=== PATIENT | female | born 1965 | race Caucasian/White ===

== ENCOUNTER 2021-09-05 14:57 | Emergency (ER) | payer MEDICARE, MEDICAID, SELFPAY ==
[2021-09-05] VITALS (8 sets, daily range): BP systolic 128–163; BP diastolic 70–103; PULSE 113–118; RESP 16–30; O2SAT 96–100
--- NOTE | ~2021-09-05 | XR_ITS ---
EXAMINATION: XR chest 1V portable INDICATION: Shortness of breath TECHNIQUE: Portable AP chest at 1554 hours COMPARISON: None available FINDINGS: There are airspace opacities of the right lung base. A small amount of fluid is identified which may reflect a pleural effusion versus fluid level in the lung parenchyma. There is no pneumotho rax. The cardiomediastinal silhouette is normal. IMPRESSION: 1. Right basilar airspace opacity with possible fluid level versus small effusion. Finding could refl ect pneumonia with abscess or possible cavitary mass versus pleural effusion. Further evaluation with CT of the chest is recommended. Reviewed, dictated and finalized at location F. ER ASSISTANT IMPRESSION: 1. Right basilar airspace opacity with possible fluid level versus small effusi on. Finding could reflect pneumonia with abscess or possible cavitary mass vers us pleural effusion. Further evaluation with CT of the chest is recommended.
--- NOTE | ~2021-09-05 | CT_ITS ---
EXAMINATION: CTA chest PE protocol DATE: 09/05/2021 16:55 INDICATION: Shortness of breath and elevated d-dimer TECHNIQUE: Computed tomography angiography (CTA) of the chest was performed with 100 mL Omnipaque-350 intravenous contrast timed to evaluate the pulmonary arteries. Coronal maximum intensity projection 3D-reconstructions were created by the technologist. The dose-length product (DLP) was 360.21 mGy-cm. Automated exposure control and iterative reconstruction technique were employed. COMPARISON: None. FINDINGS: The pulmonary arteries are well-opacified. No pulmonary embolism is identified. Respiratory motion artifact limits the examination. The lung apices are excluded from the examination. There is an approximately 7.1 x 5.3 cm cavitary mass of the right middle lobe with an internal air-fluid level . There is an adjacent 15.8 x 8.1 x 10.2 cm loculated right hydropneumothorax. The heart size is norm al. There are no pathologically enlarged thoracic lymph nodes. There is mild emphysema. IMPRESSION: 1. Cavitary mass of the right middle lobe with internal air-fluid level, likely cavitary pneumonia al though malignancy could have a similar appearance. 2. Adjacent loculated right hydropneumothorax. 3. No pulmonary embolus identified, sensitivity limited by motion artifact. Reviewed, dictated and finalized at location F. CTOR OF ENROLLMENT IMPRESSION: 1. Cavitary mass of the right middle lobe with internal air-fluid level, likely cavitary pneumonia although malignancy could have a similar appearance. 2. Adjacent loculated right hydropneumothorax. 3. No pulmonary embolus identified, sensitivity limited by motion artifact.
--- NOTE | 2021-09-05 15:07 | ECG_ITS ---
Measurements Intervals [place] Rate: 122 P: 53 ME: 120 QRS: 26 QRSD: 86 T: 52 QT: 271 QTc: 387 Interpretive Statements SINUS TACHYCARDIA ATRIAL AND VENTRICULAR PREMATURE COMPLEXES LEFT VENTRICULAR HYPERTROPHY BASELINE ARTIFACT- I, II, III, AVR, AVL, AVF, V1-V6 ABNORMAL ECG Electronically Signed On 09-06-2021 15:03:10 BUREAU DIRECTOR by Ulises Scott D.O.
--- NOTE | 2021-09-05 15:24 | ED.SOB ---
HPI - SOB/Dyspnea General Chief Complaint: Shortness of Breath/Dyspnea Stated Complaint: Shortness of breath Time Seen by Provider: 09/05/21 15:01 Source: patient and RN notes reviewed Limitations: no limitations History of Present Illness HPI Narrative: 56-year-old female presenting to the emergency department for evaluation of worsening shortness of breath. Patient states over the last 3 weeks she has had a persistent shortness of breath. Patient does have a significant history of smoking but states that she quit July. Patient is not on oxygen at home. Patient does take albuterol and Symbicort but states these have not been helping her symptoms. Patient presented to the emergency department tripoding and and mild distress. Patient does report shortness of breath denies any chest pain. Patient denies any nausea vomiting or diarrhea. Patient denies any fevers. Patient is vaccinated against COVID. Related Data Home Medications Medication Instructions Recorded Confirmed albuterol sulfate INHALATION 09/05/21 amlodipine 09/05/21 budesonide-formoterol [Symbicort] INHALATION 09/05/21 ergocalciferol (vitamin D2) 09/05/21 naproxen 09/05/21 prednisone 09/05/21 risperidone mg 09/05/21 tramadol mg 09/05/21 trazodone 09/05/21 Allergies Allergy/AdvReac Type Severity Reaction Status Date / Time No Known Allergies Allergy Verified 09/05/21 15:29 Review of Systems Review of Systems: CONSTITUTIONAL: Denies fever, chills, or sweats. EYES: Denies visual changes, redness, or discharge. ENT: Denies rhinorrhea, congestion, sore throat, or otalgia. CARDIOVASCULAR: Denies chest pain, palpitations, or edema. RESPIRATORY: Worsening shortness of breath GASTROINTESTINAL: Denies abdominal pain, nausea, vomiting, or diarrhea. GENITOURINARY: Denies dysuria or hematuria. SKIN: Denies rash or itching. MUSCULOSKELETAL: Denies back pain, joint pain, or myalgia. Exam Narrative: APPEARANCE: Mild distress due to increased work of breathing. HEAD: normocephalic, atraumatic. EYES: PERRLA/EOMI, conjunctivae clear. NOSE: Normal no drainage RESPIRATORY: Increased work of breathing. Lower lobe wheeze. Tripoding CARDIOVASCULAR: Regular rate and rhythm without murmurs rubs or gallops. ABDOMINAL: Soft, nontender, nondistended, normal bowel sounds MUSCULOSKELETAL: Moves all extremities. Strength/ROM intact, No edema, No calf tenderness. NEURO: Alert. Cranial nerves II through XII intact. Neurologically intact SKIN: Warm, dry. Normal Color PSYCHIATRIC: Normal affect/mood. Course Course Emergency Course: CT scan does show a cavitary lesion concerning for pneumonia versus malignancy on the right middle and lower lobe. Patient was started on Vanco and Zosyn with blood cultures pending. Pulmonology was consulted, Dr Lundberg. He did state that the patient would be suitable for treatment here but after taking a look at the CT scan he did feel the patient need to be transferred to a higher level of care with the availability of cardiothoracic surgery. U was consulted. Consultations Consultation #1: Dr Strickland, [facility] hospitalist, Dr Frederick, [facility] pulmonology, and Dr Hackett, [facility] CT surgery were consulted. Sputum cultures were ordered. CT requested drainage of the possible empyema tomorrow if patient has not transferred. I discussed the case with Dr. Beckwith and an order for ultrasound thoracentesis was placed. He states they will decide between IR and surgery on best how to to approach the drainage. Consultation #2: Bed availability at [facility] was unknown. Due to the emergent nature of diagnosis it was decided to seek other placement. Patient was ultimately accepted at [facility]. Case was discussed with the hospitalist and patient was accepted by Dr. Herrera. Patient was updated on the plan for transfer. All questions and concerns were addressed. Patient states that she feels significantly improved and patient is resting comfortably in the room with n
[2021-09-05 15:30] LABS: Hematocrit 32.1 % (37.0-47.0); Mean Corpuscular HGB Conc 31.2 g/dl (32-36); Mean Corpuscular Hemoglobin 29.1 pg (26-34); Mean Corpuscular Volume 93.3 fl (80-100); Mean Platelet Volume 8.6 fl (7.4-10.4); Platelet Count Result 503 k/mm3 (150-375); Red Blood Count 3.44 M/mm3 (4.2-5.4); Red Cell Distribution Width 16.4 % (11.5-14.5); White Blood Count 30.6 K/mm3 (4.5-10.0)
[2021-09-05] MEDS: ALBUTEROL SULFATE NEB 2.5 MG/0.5 ML INH 5 MG INHALATION (15:30)
[2021-09-05] MEDS: SODIUM CHLORIDE 0.9% IV 1,000 ML 999 ML IV CONT (15:30)
[2021-09-05] MEDS: methylPREDNISolone SOD SUCC 125 MG VIAL IV PUSH (15:32)
[2021-09-05 15:36] LABS: Base Excess ABG 1.2 mEq/l (+/-2.0); Fractional Inspired Oxygen 28 %; Oxygen Content ABG 13.5 %vol (16.0-22.0); Oxygen Saturation ABG 97.5 % (95.0-100.0); Oxyhemoglobin 95.8 % THb (90.0-100.0); PCO2 ABG 36.7 mmHg (35.0-45.0); PO2 ABG 93.3 mmHg (80.0-100.0); PO2 FiO2 Ratio Arterial Blood 3.33 %; Total Hemoglobin 9.9 g/dL (12.0-18.0); pH ABG 7.452 (7.350-7.450)
[2021-09-05 15:37] LABS: Device NASAL CANNULA; Modified Allen's Test Pass; Site Drawn RIGHT RADIAL
[2021-09-05 15:40] LABS: Alanine Aminotransferase 21 U/L (4-35); Albumin Level 3.8 g/dL (3.5-5.1); Alkaline Phosphatase 104 U/L (38-126); Anion Gap 8 mmol/L (8-16); Aspartate Amino Transferase 33 U/L (14-36); Bilirubin,Total 0.3 mg/dL (0.2-1.3); Blood Urea Nitrogen 23 mg/dL (7-17); Calcium 8.9 mg/dL (8.4-10.2); Carbon Dioxide 25 mmol/L (22-30); Chloride 99 mmol/L (98-107); Estimated CRCL calculation 50 ml/min; Estimated Glomerular Filt Rate > 60; Glucose 135 mg/dL (65-110); Potassium 4.6 mmol/L (3.4-5.0); Sodium 132 mmol/L (137-145)
[2021-09-05 15:43] LABS: D Dimer 0.66 ug/mL (<0.48)
[2021-09-05 15:49] LABS: NT Pro B Type Natriuretic Pept 425 pg/mL (5-100)
[2021-09-05 16:09] LABS: Band Neutrophils Percent 24 % (0-6); Lymphocytes Absolute Manual 1.22 K/mm3 (1.1-4.5); Metamyelocytes Percent 1 %; Monocytes Absolute Manual 2.14 K/mm3 (0.1-0.90); Monocytes Percent Manual 7 % (3-9); Neutrophils Absolute Manual 26.92 K/mm3 (1.7-7.2); Neutrophils Percent Manual 64 % (46-73); Total Cells Counted 100
[2021-09-05 16:10] LABS: Platelet Estimate Increased (Adequate)
[2021-09-05 16:17] LABS: Anisocytosis 1+ (NORMAL); Hypochromasia 1+ (NORMAL)
--- NOTE | 2021-09-05 16:37 | PC.NURSE ---
pt to CT at this time.
[2021-09-05 16:52] LABS: SARS-CoV-2 RNA PCR Negative
[2021-09-05] MEDS: traZODone HCL 50 MG TABLET PO (22:16)
== END 2021-09-05 23:19 | disposition short-term general hospital (02) ==
PROVIDERS: Emergency Provider Emergency Medicine
DX: J98.4 Other disorders of lung (principal); Z20.822 Contact with and (suspected) exposure to COVID-19; Z87.891 Personal history of nicotine dependence; J94.8 Other specified pleural conditions
CPT/HCPCS: 36415; 36600; 71045; 71275; 80053; 82805; 83880; 85025; 85380; 87040; 93005; 94640; 96361; 96365; 96367; 96375; 99285; A9270; C9803; J2543; J2930; J3370; J7030; Q9967; U0003; U0005

== ENCOUNTER 2023-05-13 16:43 | Emergency (ER) | payer OTHER, SELFPAY ==
--- NOTE | ~2023-05-13 | XR_ITS ---
EXAMINATION: XR chest 2V DATE: 05/13/2023 17:25 INDICATION: Asthmatic with difficulty breathing TECHNIQUE: frontal and lateral views of the chest were obtained. COMPARISON: Chest radiograph and CT dated 09/05/2021 FINDINGS: Hyperexpansion of lungs with flattening of the diaphragm. There is blunting at the bilateral costophr enic angles and posterior sulci which could represent associated pleural parenchymal scarring or very small bilateral pleural effusions. Mild linear discoid atelectasis/scarring at the right midlung zon e. No other airspace opacities, pulmonary edema or pneumothorax. Cardiomediastinal silhouette is norm al. Chronic T6 and T7 compression fractures. IMPRESSION: 1. Hyperexpansion lungs with suggestion of asthma exacerbation. 2. Blunting at the bilateral posterior sulci and costophrenic angles which could be due to either ple ural parenchymal scarring or very small bilateral pleural effusions. Reviewed, dictated and finalized at location A. IMPRESSION: 1. Hyperexpansion lungs with suggestion of asthma exacerbation. 2. Blunting at the bilateral posterior sulci and costophrenic angles which coul d be due to either pleural parenchymal scarring or very small bilateral pleural effusions.
[2023-05-13 16:59] VITALS: BP 149/90; PULSE 111; RESP 16; TEMP 37.3; O2SAT 98
--- NOTE | 2023-05-13 17:43 | ED.URI ---
HPI - URI/Sore Throat General Chief Complaint: Upper Respiratory Infection Stated Complaint: hard time breathing Time Seen by Provider: 05/13/23 17:05 Source: patient Mode of arrival: ambulatory Limitations: no limitations History of Present Illness HPI Narrative: Vance is a 58-year-old female patient presenting to the clinic today with complaints of difficulty breathing over the past few days. She denies any fever or chills. Is concerned about pneumonia-states she was admitted with pneumonia in the past. Reports she is short of breath but is able to speak in full sentences. History of asthma. MD elicited complaint: cough and other (Shortness of breath) Related Data Home Medications Medication Instructions Recorded Confirmed albuterol sulfate 90 mcg/actuation inhalation 09/05/21 aerosol inhaler amlodipine 10 mg tablet 09/05/21 budesonide-formoterol HFA 160 inhalation 09/05/21 mcg-4.5 mcg/actuation aerosol inhaler (Symbicort) ergocalciferol (vitamin D2) 1,250 09/05/21 mcg (50,000 unit) capsule trazodone 50 mg tablet 09/05/21 budesonide 160 mcg-glycopyr 9 inh inhalation 05/13/23 mcg-formot 4.8 mcg/actuation HFA inhaler (Breztri Aerosphere) citalopram 40 mg tablet mg 05/13/23 hydrocodone 5 mg-acetaminophen 325 tablet 05/13/23 mg tablet megestrol 40 mg tablet mg 05/13/23 montelukast 10 mg tablet mg 05/13/23 Allergies Allergy/AdvReac Type Severity Reaction Status Date / Time No Known Allergies Allergy Verified 05/13/23 17:13 Review of Systems Review of Systems: Pertinent positives per HPI. Patient denies any fever, chills, rash, headache, visual changes, dizziness, chest pain, palpitations, nausea, vomiting, diarrhea, constipation, abdominal pain, or any urinary issues. PMFSH Comments At the time of my signature, I reviewed and agree with the nursing past medical, surgical, social, and family history. There is no relevant family history pertinent to the patient complaint. Exam Narrative: General: Well-developed, well nourished, in no apparent distress Head: Normocephalic, atraumatic Eyes: Pupils equally round and reactive to light bilaterally, EOM intact, sclera and conjunctive clear, no discharge, lids normal Ears: TMs intact and clear, ear canals clear, no drainage, grossly hearing normal. Nose: Nares patent, clear nasal discharge, no inflammation, no sinus tenderness. Mouth: Oral pharynx without lesions or masses, good dentition, MMM. Neck: Supple, trachea midline, no enlargement of anterior or posterior cervical nodes, no thyroid masses or goiter palpable. Cardio: Regular rate and rhythm, s1 and s2 normal, no murmur appreciated. Resp: Expiratory wheezing with diminished breath sounds, no rhonchi, rales,or rubs Course Course Emergency Course: Portions of this record may have been created with voice recognition software. Level of Care: Express Care Visit Vital Signs Vital signs: Vital Signs Temperature 37.3 C 05/13/23 16:59 Pulse Rate 111 H 05/13/23 16:59 Respiratory Rate 16 05/13/23 16:59 Blood Pressure 149/90 H 05/13/23 16:59 Pulse Oximetry 98 05/13/23 16:59 Oxygen Delivery Room Air 05/13/23 16:59 Temperature 37.3 C 05/13/23 16:59 Pulse Rate 111 H 05/13/23 16:59 Respiratory Rate 18 05/13/23 18:15 Blood Pressure 149/90 H 05/13/23 16:59 Pulse Oximetry 98 05/13/23 16:59 Oxygen Delivery Room Air 05/13/23 16:59 Vital signs reviewed MDM - URI/Sore Throat MDM Narrative Medical decision making narrative: At the time of visit patient is resting comfortably on the exam table. Chest x-ray shows no sign of pneumonia however does show probable asthma exacerbation with bilateral small pleural effusions. DuoNeb was given in the clinic today and this improved patient's breathing and lung sounds, prescription for doxycycline and prednisone was given to cover for a COPD exacerbation. Supportive measures were discussed
[2023-05-13] MEDS: IPRATROPIUM BR 0.02% INH SOLN 0.5 MG/2.5 ML VIAL INHALATION (17:58)
[2023-05-13] MEDS: ALBUTEROL SULFATE NEB 2.5 MG/3 ML INH INHALATION (17:59)
--- NOTE | 2023-05-13 18:01 | PC.NURSE ---
aware service delivery analyst has dc papers printed and dc after breathing tx.
[2023-05-13 18:15] VITALS: RESP 18
== END 2023-05-13 18:15 | disposition home or self-care (01) ==
PROVIDERS: Emergency Provider Nurse Practitioner Family
DX: J45.901 Unspecified asthma with (acute) exacerbation (principal); I10 Essential (primary) hypertension; J44.9 Chronic obstructive pulmonary disease, unspecified
CPT/HCPCS: 71046; 94640; 99213; G0463

== ENCOUNTER 2023-07-30 16:31 | Inpatient (IN) | payer OTHER, SELFPAY ==
[2023-07-30] VITALS (17 sets, daily range): BP systolic 102–151; BP diastolic 54–112; PULSE 101–125; RESP 22–33; TEMP 36.7–37.2; O2SAT 96–100; BMI 16.2
--- NOTE | 2023-07-30 | ECG_ITS ---
Measurements Intervals [place] Rate: 116 P: 78 TN: 129 QRS: 67 QRSD: 90 T: 77 QT: 327 QTc: 456 Interpretive Statements SINUS TACHYCARDIA VENTRICULAR PREMATURE COMPLEX VOLTAGE CRITERIA FOR LVH BASELINE ARTIFACT- I, II, III, AVR, AVL, AVF, V1-V2, V4-V6 ABNORMAL ECG COMPARED TO ECG 09/05/2021 15:07:51 NO SIGNIFICANT CHANGES Electronically Signed On 07-31-2023 6:42:35 BPM SOLUTION ARCHITECT by Ulises Scott D.O.
--- NOTE | ~2023-07-30 | XR_ITS ---
EXAMINATION: XR chest 1V portable Exam Date/Time: 07/30/2023 17:00 MANAGER OF FINANCIAL PLANNING HISTORY: dyspnea Comparison: 05/13/2023. RESULT: Lines, tubes, and devices: None. Lungs and pleura: Severe emphysematous change. Right midlung scar. No focal consolidation, pleural e ffusion, or pneumothorax. Cardiomediastinal silhouette: Stable. Other: No acute osseous or upper abdominal finding. IMPRESSION: No acute cardiopulmonary process. Reviewed, dictated and finalized at location K. GER OF FINANCIAL PLANNING
[2023-07-30] MEDS: methylPREDNISolone SOD SUCC 125 MG VIAL IV PUSH (16:37)
[2023-07-30 16:49] LABS: Basophils Absolute Auto 0.1 K/mm3 (0.0-0.1); Basophils Percent Auto 0.5 % (0.2-1.2); Eosinophils Absolute Auto 0.3 K/mm3 (0-0.3); Eosinophils Percent Auto 2.8 % (0-4.4); Hematocrit 42.4 % (37.0-47.0); Immature Granulocyte Absolute 0.04 K/mm3 (0.00-0.031); Immature Granulocyte Percent A 0.4 % (0-0.5); Lymphocytes Absolute Auto 2.33 K/mm3 (0.9-3.2); Lymphocytes Percent Auto 22.3 % (18.3-44.2); Mean Corpuscular Hemoglobin 30.8 pg (26-34); Mean Corpuscular Volume 93.2 fl (80-100); Mean Platelet Volume 9.5 fl (7.4-10.4); Monocytes Absolute Auto 1.1 K/mm3 (0.1-0.6); Monocytes Percent Auto 10.8 % (2.6-8.5); Neutrophils Absolute Auto 6.6 K/mm3 (1.3-6.7); Neutrophils Percent Auto 63.2 % (45.5-73.1); Platelet Count Result 346 k/mm3 (150-375); Red Blood Count 4.55 M/mm3 (4.2-5.4); Red Cell Distribution Width 13.2 % (11.5-14.5); White Blood Count 10.5 K/mm3 (4.5-10.0)
[2023-07-30] MEDS: ALBUTEROL SULFATE NEB 2.5 MG/3 ML INH 15 MG INHALATION (16:49)
[2023-07-30] MEDS: IPRATROPIUM BR 0.02% INH SOLN 0.5 MG/2.5 ML VIAL 1 MG INHALATION (16:49)
[2023-07-30 17:07] LABS: Alanine Aminotransferase 41 U/L (6-35); Albumin Level 4.5 g/dL (3.5-5.1); Alkaline Phosphatase 63 U/L (38-126); Anion Gap 12 mmol/L (8-16); Aspartate Amino Transferase 44 U/L (14-36); Bilirubin,Total 0.6 mg/dL (0.2-1.3); Blood Urea Nitrogen 7 mg/dL (7-17); Calcium 9.4 mg/dL (8.4-10.2); Carbon Dioxide 28 mmol/L (22-30); Chloride 94 mmol/L (98-107); Estimated CRCL calculation 46 ml/min; Estimated Glomerular Filt Rate > 60; Glucose 118 mg/dL (65-110); Magnesium 1.8 mg/dL (1.6-2.3); Potassium 4.2 mmol/L (3.4-5.0); Sodium 134 mmol/L (137-145)
[2023-07-30 17:15] LABS: NT Pro B Type Natriuretic Pept 2110 pg/mL (19.9-100)
[2023-07-30] MEDS: LORazepam INJ (*CRX) 2 MG/ML VIAL 0.5 MG IV PUSH ×2 (17:16→21:50)
[2023-07-30 17:24] LABS: Alveolar/Arterial O2 Gradient 68.4 mmHg; Base Excess ABG -0.6 mEq/l (+/-2.0); Carboxyhemoglobin 0.8 % THb (0-2.0); Fractional Inspired Oxygen 45 %; HCO3 ABG 24.6 mEq/l (22.0-26.0); Methemoglobin ABG 0.1 %THb (0-1.5); Oxygen Content ABG 20.4 %vol (16.0-22.0); Oxygen Saturation ABG 99.4 % (95.0-100.0); Oxyhemoglobin 98.1 % THb (90.0-100.0); PCO2 ABG 42.3 mmHg (35.0-45.0); PO2 ABG 204.3 mmHg (80.0-100.0); PO2 FiO2 Ratio Arterial Blood 4.54 %; Total Hemoglobin 14.5 g/dL (12.0-18.0); pH ABG 7.382 (7.350-7.450)
[2023-07-30 17:25] LABS: Device BIPAP; Modified Allen's Test Pass; Site Drawn RIGHT BRACHIAL
[2023-07-30 17:26] LABS: Influenza A QL RT-PCR Negative (Negative); Influenza B QL RT-PCR Negative (Negative); RSV RNA, RT-PCR Positive (Negative); SARS-CoV-2 RNA PCR Negative (Negative)
[2023-07-30 17:26] LABS: Expiratory Pressure 7 cmH2O; Inspiratory Pressure 12 cmH2O
--- NOTE | 2023-07-30 18:03 | ED.SOB ---
HPI - SOB/Dyspnea General Chief Complaint: Shortness of Breath/Dyspnea Stated Complaint: SOB Time Seen by Provider: 07/30/23 16:33 History of Present Illness HPI Narrative: Patient with history of COPD presents here due to difficulty breathing, she has had increased shortness of breath for last few days, has been trying to use her home albuterol, has been also having productive sputum. When EMS arrived was in severe distress, they gave 1 neb, pt refused steroids. Related Data Home Medications Medication Instructions Recorded Confirmed albuterol sulfate 90 mcg/actuation inhalation 09/05/21 aerosol inhaler amlodipine 10 mg tablet 09/05/21 budesonide-formoterol HFA 160 inhalation 09/05/21 mcg-4.5 mcg/actuation aerosol inhaler (Symbicort) ergocalciferol (vitamin D2) 1,250 09/05/21 mcg (50,000 unit) capsule trazodone 50 mg tablet 09/05/21 budesonide 160 mcg-glycopyr 9 inh inhalation 05/13/23 mcg-formot 4.8 mcg/actuation HFA inhaler (Breztri Aerosphere) citalopram 40 mg tablet mg 05/13/23 hydrocodone 5 mg-acetaminophen 325 tablet 05/13/23 mg tablet megestrol 40 mg tablet mg 05/13/23 montelukast 10 mg tablet mg 05/13/23 Allergies Allergy/AdvReac Type Severity Reaction Status Date / Time No Known Allergies Allergy Verified 05/13/23 17:13 Review of Systems Review of Systems: CONST: No fever. HEENT: No sore throat C/V: No chest pain RESP: cough and difficulty breathing GI: No abdominal pain : No dysuria. M/S: No joint pain. SKIN: No rash. NEURO: [No headache or focal numbness or weakness] PSYCH: [No depression] Exam Narrative: EXAMINATION OF ORGAN SYSTEMS/BODY AREAS: Constitutional: Vital signs per nursing GENERAL: Severe respiratory distress HEAD: Normal with no signs of head trauma. EYES: EOMI, conjunctiva normal ENT: Hearing grossly intact LUNGS: extremely tachypneic, labored respirations, no to minimal air movement bilaterally, one word sentences HEART: tachycardic ABD: [Soft], [nontender to palpation] EXT: Normal range of motion SKIN: [No rashes or lesions.] NEURO: [Alert and oriented x 3. No gross focal sensory or strength deficits.] PSYCH: Normal affect Course Vital Signs Vital signs: Vital Signs Temperature 98.0 F 07/30/23 16:28 Pulse Rate 117 H 07/30/23 16:28 Respiratory Rate 33 H 07/30/23 16:28 Blood Pressure 151/112 H 07/30/23 16:28 Pulse Oximetry 100 07/30/23 16:28 Oxygen Delivery Room Air 07/30/23 16:28 Temperature 98.0 F 07/30/23 16:28 Pulse Rate 125 H 07/30/23 17:48 Respiratory Rate 29 H 07/30/23 17:48 Blood Pressure 109/92 H 07/30/23 17:48 Pulse Oximetry 100 07/30/23 17:48 Oxygen Delivery BiPAP 07/30/23 16:50 Oxygen Flow Rate 2 07/30/23 16:35 MDM - SOB/Dyspnea MDM Narrative Medical decision making narrative: ED COURSE AND MEDICAL DECISION MAKIN with acute dyspnea and cough likely due to acute COPD exacerbation based on history and exam, also considered pneumonia, pneumothorax; considered PE however no DVT symptoms and I do feel more likely COPD. Patient immediately placed on monitors, BIPAP, nebulizer treatments are started and steroids given. Patient became quite anxious with the mask on, so very small dose of ativan ordered. Patient tolerated this well. Patient monitored in the ED for a couple of hours and on reevaluation is feeling significantly better. Now with improved exam with some audible wheezing now but still diminished. I did feel she would benefit from admission for continued treatment and she's agreeable with this. Azithromycin started for COPD exac. RSV+. CXR on my independent interpretation c/w emphysema with hyperinflated lungs, no obvious PTX or focal consolidation. EKG - 12-Lead Interpreted by me. [Sinus rhythm]. Rate [116]. [Normal] axis. ND-interval [normal]. QRS duration [normal]. QTc [normal]. [No ST segment elevation or depression]. No obvious signs o
--- NOTE | 2023-07-30 18:08 | PM.IMHP ---
H&P: HPI History of Present Illness Date/Time: 07/30/23 18:08 Chief Complaint: SOB Narrative: 58 y/o F presents here with SOB with PMH of COPD, former smoker, HTN, chronic back pain, insomnia, and anxiety. Patient presented here via EMS from home with shortness of breath and fever. Patient states her symptoms started on Monday, 07/28. Associated congestion, productive cough, generalized weakness, and body aches. No chills. Arrived to ED in distress despite DuoNeb treatment while in route. Per ED provider, patient had diminished lung sounds throughout and tight, was tripoding, unable to speak full sentences, and had pursed lip breathing/retractions. Patient has been utilizing her home albuterol without resolution of symptoms for the past few days. Last COPD exacerbation was on 05/13/2023, seen here and given nebulizers. Was discharged with doxycycline and prednisone. Has history of smoking - . Vital signs at arrival: Afebrile, HR 117, RR 33, 100% on room air, BP 151/112. ED workup revealed mild leukocytosis with WBC of 10.5, VBG unremarkable excluding elevated pO2 of 204.3, sodium 134, creatinine 0.8, mild elevation in LFTs, proBNP 2110, and patient is RSV+. CXR did not demonstrate any acute cardiopulmonary processes. EKG showed sinus tachycardia, atrial and ventricular premature complexes, left ventricular hypertrophy, abnormal EKG. Review of Systems Review of Systems: All systems reviewed & are unremarkable except as noted in HPI and below PMFSH Past Medical History Medical History Anxiety Chronic back pain COPD (chronic obstructive pulmonary disease) Former smoker HTN (hypertension) Insomnia Surgical History Surgical History History of cataract surgery Family History Family History Sibling Hypertension Social History Social History Smoking packs per day: 0.5 Smoking cigarettes per day: 10.0 Years smoked: 35 Smoking pack-years: 17.50 Smoking status: Former smoker Tobacco type: cigarettes Smoking end date: 07/23/23 Alcohol intake: never Substance use: current Substance use type: marijuana Last use: 07/28/23 Do You Feel Safe in your Home?: Yes Lack of Transportation: No Lack of Food: Never True Current Housing: I Have Housing Concerned About Future Housing: No Difficulty Paying Gas/Electric Bills: No Difficulty Paying for Meds: No Currently Unemployed: No Education: High School Diploma/GED Difficulty w/ Childcare or Family Care: No Spiritual care concerns: No Meds Home Medications and Allergies Home Medications Medication Instructions Recorded Confirmed Type albuterol sulfate 90 mcg/actuation 2 puff inhalation BID 09/05/21 07/30/23 History aerosol inhaler amlodipine 10 mg tablet 5 mg PO QAM 09/05/21 07/30/23 History budesonide-formoterol HFA 160 2 puff inhalation BID 09/05/21 07/30/23 History mcg-4.5 mcg/actuation aerosol inhaler (Symbicort) trazodone 50 mg tablet 50 mg PO HS 09/05/21 07/30/23 History hydrocodone 5 mg-acetaminophen 325 1 tablet PO QID 05/13/23 07/30/23 History mg tablet Allergies Allergy/AdvReac Type Severity Reaction Status Date / Time No Known Allergies Allergy Verified 05/13/23 17:13 Vital Signs Vital Signs - 24 hr 07/30/23 16:28 07/30/23 16:35 07/30/23 16:35 Temperature 98.0 F Pulse Rate 117 H 115 H Respiratory Rate 33 H Blood Pressure 151/112 H Pulse Oximetry 100 100 Oxygen Delivery Room Air Nasal Cannula Oxygen Flow Rate 2 07/30/23 16:35 07/30/23 16:50 07/30/23 16:51 Temperature Pulse Rate 108 H 107 H Respiratory Rate 29 H 23 H Blood Pressure Pulse Oximetry 100 99 Oxygen Delivery Nasal Cannula BiPAP Oxygen Flow Rate 2 07/30/23 17:48 [place]a
[2023-07-30] MEDS: AZITHROMYCIN 500 MG/NS 250 ML 500 MG/250 ML BAG 250 MG IVPB (18:10)
[2023-07-30] MEDS: guaiFENesin 12 HR 600 MG TABCR PO (19:20)
[2023-07-30] MEDS: ENOXAPARIN 40 MG/0.4 ML SYRINGE SUB-Q (19:20)
[2023-07-30] MEDS: SODIUM CHLORIDE 0.9% IV 1,000 ML 100 ML IV CONT (19:27)
[2023-07-30] MEDS: LEVALBUTEROL NEB 1.25 MG/3 ML INHALATION ×2 (19:42→23:03)
--- NOTE | 2023-07-30 21:15 | ADMGEN ---
This patient, Cathy Vallejo, was admitted to IMU Room 209-01. Patient/family oriented to hospital policies and general routines including ID bracelet, bed and alarms, visiting hours, pain management, procedures, bathroom and other care routines, personal items, smoking policy, room service/diet, and visiting hours. Information on how to activate the Rapid Response Team has been discussed. Patient/Family are encouraged to report perceived risks to care and to ask questions if they do not understand what they are told or what they should do.
[2023-07-30] MEDS: IPRATROPIUM BR 0.02% INH SOLN 0.5 MG/2.5 ML VIAL INHALATION (23:03)
--- NOTE | 2023-07-30 23:03 | PC.NURSE ---
Talked to and educated patient with charge nurse, María OLIVERA, and Randi Lindsey APRN present. Patient stated she does not want to be resusitated with compressions, medications, or intubation.
[2023-07-31] VITALS (28 sets, daily range): BP systolic 131–173; BP diastolic 91–109; PULSE 99–123; RESP 22–32; TEMP 36.6–37; O2SAT 93–100; BMI 16.2
[2023-07-31] MEDS: methylPREDNISolone SOD SUCC 125 MG VIAL 60 MG IV PUSH ×4 (00:05→17:00)
[2023-07-31] MEDS: ACETAMINOPHEN 325 MG TABLET 650 MG PO (02:56)
[2023-07-31] MEDS: LEVALBUTEROL NEB 1.25 MG/3 ML INHALATION ×6 (04:51→23:31)
[2023-07-31] MEDS: IPRATROPIUM BR 0.02% INH SOLN 0.5 MG/2.5 ML VIAL INHALATION ×6 (04:51→23:31)
[2023-07-31] MEDS: amLODIPine BESYLATE 5 MG TABLET PO (09:06)
[2023-07-31] MEDS: BENZONATATE 100 MG CAPSULE PO ×2 (09:07→17:00)
[2023-07-31] MEDS: HYDROcodone/acetaminophen (*CRX) 5-325 MG TABLET 1 TAB PO ×4 (09:07→20:12)
[2023-07-31] MEDS: guaiFENesin 12 HR 600 MG TABCR PO ×2 (09:09→20:12)
[2023-07-31 10:52] LABS: NT Pro B Type Natriuretic Pept 2970 pg/mL (19.9-100)
[2023-07-31 11:11] LABS: Fractional Inspired Oxygen 28 %; HCO3 VBG 20.4 mEq/l (24.0-30.0); PO2 VBG 80.9 mmHg (35.0-45.0)
[2023-07-31 11:12] LABS: pH VBG 7.458 (7.300-7.400)
[2023-07-31 11:13] LABS: Device NON-INVASIVE VENT; Non-Invasive Expiratory Pressure 7 CMH2O; Non-Invasive Inspiratory Pressure 14 CMH2O; Non-Invasive Vent Rate 16 /MIN; PCO2 VBG 29.5 mmHg (42.0-48.0)
--- NOTE | 2023-07-31 16:11 | PM.IMPN ---
Progress Note: A&P Assessment and Plan (1) COPD with acute exacerbation: Code(s): J44.1 - Chronic obstructive pulmonary disease with (acute) exacerbation Status: Acute Assessment and Plan: -currently requiring BiPAP, continue -CXR: No acute cardiopulmonary process. Per my review of imaging, possible blebs bilaterally at bases. -continue nebs: ipratropium/levalbuterol Q4 p.r.n., post albuterol administration patient became increasingly tachycardic with heart rate sustaining in the 120-130s -continue steroids: initial dose of 125 mg methylprednisolone IVP, continue as 60 mg IVP Q6H x 3d. -1st dose of azithromycin 500 mg IVPB given in ED, continue Q24H -reassessment at 2100: minimal air movement. will need to continue BiPAP and nebs. 07/31/23: Will wean oxygen (2) RSV bronchitis: Code(s): J20.5 - Acute bronchitis due to respiratory syncytial virus Status: Acute Assessment and Plan: -tested positive for RSV on 07/30/2023 -symptom onset on: -continue supportive measures Tylenol p.r.n. Tessalon Perles p.r.n. IV fluids - 100 mL/hr of NS x2L Mucinex Plan Diet: NPO until off BiPAP GI Prophylaxis: Not indicated DVT Prophylaxis: SCDs, Lovenox Lines: pIV Code Status: DNR Time Spent With Patient Time with patient: 25 - 35 minutes Subjective Date/time seen: 07/31/23 16:11 Interval history: Seen and examined; on BiPAP; not in painful distress Review of Systems Review of Systems: All systems reviewed & are unremarkable except as noted in HPI and below Constitutional: Constitutional: Reports no additional constitutional complaints Eyes: Eyes: Reports no additional eye complaints ENT: Reports system reviewed and no additional complaints, except as documented Cardiovascular: Cardiovascular: Reports no additional cardiovascular complaints Respiratory: Respiratory: Reports dyspnea Gastrointestinal: Gastrointestinal: Reports no additional gastrointestinal complaints Musculoskeletal: Musculoskeletal: Reports no additional musculoskeletal complaints Integumentary/Breasts: Skin/Breast: Reports dry skin Neurologic: Reports confusion Psychiatric: Psychiatric: Reports no additional psychiatric complaints Exam Const: General: comfortable and in distress Other: ill appearing, frail, , female. HENMT: Face/Nose/Sinus: Normal nares present Mouth: Yes dry mucous membranes Other: dry secondary to BIPAP Eyes: General: appearance normal, both eyes and all related structures Sclera: sclerae normal Pupils: Equal, round and reactive pupils present EOM: EOMs intact bilaterally Other: 3-4 mm bilaterally. Resp: Other: +tachypnea, diaphragmatic breathing. L diminished throughout with minimal air movement. R side has faint expiratory wheeze with moderate airmovement. no crackles, however limited due to min-mod air movement throughout. BIPAP in place. Cardio: Rate: tachycardic Rhythm: regular rhythm Other: S1-S2 present without murmur, rub, ectopy GI: Other: non-tender, non-firm, and non-distended Skin: General skin exam: normal color and no rashes or lesions noted Wounds: no wounds Neuro: Cranial nerves: Yes Equal, round and reactive pupils present Speech: normal speech Motor exam (neuro): 5/5 motor strength present throughout Sensory Exam: normal sensation Other: A/Ox4. Extrem: General: normal to inspection Psych: Mental Status: mental status grossly normal Affect: normal affect Other: Fair insight judgment, pleasant. Objective Data Vital Signs Vital Signs: Vital Signs - 24 hr 07/30/23 16:28 07/30/23 16:35 07/30/23 16:35 Temperature 98.0 F Pulse Rate 117 H 115 H Respiratory Rate 33 H Blood Pressure 151/112 H Pulse Oximetry 100 100 Oxygen Delivery Room Air Nasal Cannula Oxygen Flow Rate 2 Fraction of Inspired Oxygen 07/30/23 16:35 07/30/23 16:50 07/30/23 16:51 [place]
[2023-07-31] MEDS: SODIUM CHLORIDE 0.9% IV 1,000 ML 50 ML IV CONT (16:18)
[2023-07-31] MEDS: AZITHROMYCIN 500 MG/NS 250 ML 500 MG/250 ML BAG 250 MG IVPB (17:00)
[2023-07-31] MEDS: FLUTICASONE/SALMETEROL 115-21 MCG INHALER 1 PUFF 2 PUFF INHALATION (19:27)
[2023-07-31] MEDS: traZODone HCL 50 MG TABLET PO (20:12)
[2023-08-01] VITALS (35 sets, daily range): BP systolic 140–190; BP diastolic 90–106; PULSE 97–124; RESP 20–30; TEMP 36–37.1; O2SAT 96–100
[2023-08-01] MEDS: methylPREDNISolone SOD SUCC 125 MG VIAL 60 MG IV PUSH ×3 (00:46→12:02)
[2023-08-01] MEDS: LEVALBUTEROL NEB 1.25 MG/3 ML INHALATION ×6 (03:44→23:33)
[2023-08-01] MEDS: IPRATROPIUM BR 0.02% INH SOLN 0.5 MG/2.5 ML VIAL INHALATION ×6 (03:45→23:33)
[2023-08-01 04:55] LABS: Basophils Percent Auto 0.1 % (0.2-1.2); Hematocrit 32.7 % (37.0-47.0); Hemoglobin 10.7 g/dL (12.0-15.0); Immature Granulocyte Absolute 0.07 K/mm3 (0.00-0.031); Immature Granulocyte Percent A 0.5 % (0-0.5); Lymphocytes Absolute Auto 0.72 K/mm3 (0.9-3.2); Lymphocytes Percent Auto 5.1 % (18.3-44.2); Mean Corpuscular HGB Conc 32.7 g/dl (32-36); Mean Corpuscular Hemoglobin 31.1 pg (26-34); Mean Corpuscular Volume 95.1 fl (80-100); Mean Platelet Volume 9.6 fl (7.4-10.4); Monocytes Absolute Auto 0.6 K/mm3 (0.1-0.6); Monocytes Percent Auto 4.1 % (2.6-8.5); Neutrophils Absolute Auto 12.7 K/mm3 (1.3-6.7); Neutrophils Percent Auto 90.2 % (45.5-73.1); Platelet Count Result 286 k/mm3 (150-375); Red Blood Count 3.44 M/mm3 (4.2-5.4); Red Cell Distribution Width 13.4 % (11.5-14.5); White Blood Count 14.1 K/mm3 (4.5-10.0)
[2023-08-01 05:26] LABS: Alanine Aminotransferase 31 U/L (6-35); Albumin Level 3.8 g/dL (3.5-5.1); Alkaline Phosphatase 41 U/L (38-126); Anion Gap 9 mmol/L (8-16); Aspartate Amino Transferase 31 U/L (14-36); Bilirubin,Total 0.4 mg/dL (0.2-1.3); Blood Urea Nitrogen 28 mg/dL (7-17); Calcium 8.9 mg/dL (8.4-10.2); Carbon Dioxide 23 mmol/L (22-30); Chloride 102 mmol/L (98-107); Estimated CRCL calculation 35 ml/min; Estimated Glomerular Filt Rate 57; Glucose 133 mg/dL (65-110); Potassium 4.2 mmol/L (3.4-5.0); Sodium 134 mmol/L (137-145)
[2023-08-01] MEDS: FLUTICASONE/SALMETEROL 115-21 MCG INHALER 1 PUFF 2 PUFF INHALATION ×2 (08:20→19:39)
[2023-08-01] MEDS: guaiFENesin 12 HR 600 MG TABCR PO ×2 (08:21→20:30)
[2023-08-01] MEDS: HYDROcodone/acetaminophen (*CRX) 5-325 MG TABLET 1 TAB PO ×4 (08:21→20:30)
[2023-08-01] MEDS: amLODIPine BESYLATE 5 MG TABLET PO (08:21)
[2023-08-01] MEDS: LORazepam INJ (*CRX) 2 MG/ML VIAL 0.5 MG IV PUSH ×2 (09:26→20:29)
--- NOTE | 2023-08-01 09:33 | ECG_ITS ---
Measurements Intervals [place] Rate: 109 P: 55 DE: 116 QRS: 48 QRSD: 89 T: 60 QT: 325 QTc: 439 Interpretive Statements SINUS TACHYCARDIA WITH SHORT DE INTERVAL VENTRICULAR PREMATURE COMPLEX ABNORMAL ECG COMPARED TO ECG 07/30/2023 16:33:10 NO SIGNIFICANT CHANGES Electronically Signed On 08-01-2023 10:46:25 STAFF PHYSICAL THERAPIST by Ulises Scott D.O.
--- NOTE | 2023-08-01 09:43 | PCOTNOTE ---
Attempted OT evaluation, per RN hold due to current high HR. Will follow.
[2023-08-01 09:46] LABS: Potassium 4.3 mmol/L (3.4-5.0)
--- NOTE | 2023-08-01 09:48 | PCPTNOTE ---
Attempted PT evaluation, per RN hold due to current high HR. Will follow
[2023-08-01] MEDS: METOPROLOL SUCCINATE EXT REL 25 MG TABCR PO (10:17)
[2023-08-01] MEDS: SODIUM CHLORIDE 0.9% IV 1,000 ML 50 ML IV CONT (12:02)
--- NOTE | 2023-08-01 14:58 | PM.IMPN ---
Progress Note: A&P Assessment and Plan (1) COPD with acute exacerbation: Code(s): J44.1 - Chronic obstructive pulmonary disease with (acute) exacerbation Status: Acute Assessment and Plan: -currently requiring BiPAP, continue -CXR: No acute cardiopulmonary process. Per my review of imaging, possible blebs bilaterally at bases. -continue nebs: ipratropium/levalbuterol Q4 p.r.n., post albuterol administration patient became increasingly tachycardic with heart rate sustaining in the 120-130s -continue steroids: initial dose of 125 mg methylprednisolone IVP, continue as 60 mg IVP Q6H x 3d. -1st dose of azithromycin 500 mg IVPB given in ED, continue Q24H -reassessment at 2100: minimal air movement. will need to continue BiPAP and nebs. 07/31/23: Will wean oxygen 08/01/: Steroids, oxygen, Ceftriaxone, Azithromycin, PEP, (2) RSV bronchitis: Code(s): J20.5 - Acute bronchitis due to respiratory syncytial virus Status: Acute Assessment and Plan: -tested positive for RSV on 07/30/2023 -symptom onset on: -continue supportive measures Tylenol p.r.n. Tessalon Perles p.r.n. IV fluids - 100 mL/hr of NS x2L Mucinex Plan Diet: NPO until off BiPAP GI Prophylaxis: Not indicated DVT Prophylaxis: SCDs, Lovenox Lines: pIV Code Status: DNR Time Spent With Patient Time with patient: 25 - 35 minutes Subjective Date/time seen: 08/01/23 14:58 Interval history: Seen and examined; anxious and cooperative Review of Systems Review of Systems: All systems reviewed & are unremarkable except as noted in HPI and below Constitutional: Constitutional: Reports no additional constitutional complaints Eyes: Eyes: Reports no additional eye complaints ENT: Reports system reviewed and no additional complaints, except as documented Cardiovascular: Cardiovascular: Reports no additional cardiovascular complaints and Reports dyspnea Respiratory: Respiratory: Reports dyspnea Gastrointestinal: Gastrointestinal: Reports no additional gastrointestinal complaints Musculoskeletal: Musculoskeletal: Reports no additional musculoskeletal complaints Integumentary/Breasts: Skin/Breast: Reports dry skin Neurologic: Reports confusion Psychiatric: Psychiatric: Reports no additional psychiatric complaints and Reports confusion Exam Const: General: comfortable, in distress and confusion Orientation/consciousness: confusion Other: ill appearing, frail, , female. HENMT: Face/Nose/Sinus: Normal nares present Mouth: Yes dry mucous membranes Other: dry secondary to BIPAP Eyes: General: appearance normal, both eyes and all related structures Sclera: sclerae normal Pupils: Equal, round and reactive pupils present EOM: EOMs intact bilaterally Other: 3-4 mm bilaterally. Neck: Neck: supple Resp: Auscultation: wheezes and diminished lung sounds Other: +tachypnea, diaphragmatic breathing. L diminished throughout with minimal air movement. R side has faint expiratory wheeze with moderate airmovement. no crackles, however limited due to min-mod air movement throughout. Cardio: Rate: tachycardic Rhythm: regular rhythm Other: S1-S2 present without murmur, rub, ectopy GI: Other: non-tender, non-firm, and non-distended Skin: General skin exam: normal color and no rashes or lesions noted Wounds: no wounds Neuro: Cranial nerves: Yes Equal, round and reactive pupils present Speech: normal speech Motor exam (neuro): 5/5 motor strength present throughout Sensory Exam: normal sensation Other: A/Ox4. Extrem: General: normal to inspection Psych: Mental Status: mental status grossly normal Affect: Anxious affect present Other: Fair insight judgment, pleasant. Objective Data Vital Signs Vital Signs: Vital Signs - 24 hr 07/31/23 16:00 07/31/23 16:27 07/31/23 16:45 Temperature 98.2 F Pulse Rate 117 H 99 103 H Respiratory Rate 24 H 2
[2023-08-01] MEDS: guaiFENesin/DEXTROMETHORPHAN 10 ML UDC PO ×2 (16:42→20:33)
[2023-08-01] MEDS: AZITHROMYCIN 500 MG/NS 250 ML 500 MG/250 ML BAG 250 MG IVPB (17:49)
[2023-08-01] MEDS: traZODone HCL 50 MG TABLET PO (20:30)
[2023-08-01] MEDS: methylPREDNISolone SOD SUCC 125 MG VIAL 40 MG IV PUSH (20:31)
[2023-08-02] VITALS (32 sets, daily range): BP systolic 144–196; BP diastolic 82–115; PULSE 94–114; RESP 18–28; TEMP 36.2–36.9; O2SAT 92–99
[2023-08-02] MEDS: IPRATROPIUM BR 0.02% INH SOLN 0.5 MG/2.5 ML VIAL INHALATION ×5 (03:18→20:41)
[2023-08-02] MEDS: LEVALBUTEROL NEB 1.25 MG/3 ML INHALATION ×2 (03:18→07:35)
[2023-08-02] MEDS: ACETAMINOPHEN 325 MG TABLET 650 MG PO (04:49)
[2023-08-02] MEDS: BENZONATATE 100 MG CAPSULE PO ×2 (04:50→20:31)
[2023-08-02] MEDS: guaiFENesin/DEXTROMETHORPHAN 10 ML UDC PO ×3 (04:52→17:36)
[2023-08-02] MEDS: LORazepam INJ (*CRX) 2 MG/ML VIAL 0.5 MG IV PUSH (04:53)
[2023-08-02] MEDS: SODIUM CHLORIDE 0.9% IV 1,000 ML 50 ML IV CONT (04:55)
[2023-08-02 05:11] LABS: Basophils Percent Auto 0.1 % (0.2-1.2); Immature Granulocyte Absolute 0.11 K/mm3 (0.00-0.031); Immature Granulocyte Percent A 0.9 % (0-0.5); Lymphocytes Absolute Auto 0.56 K/mm3 (0.9-3.2); Lymphocytes Percent Auto 4.6 % (18.3-44.2); Mean Corpuscular HGB Conc 33.3 g/dl (32-36); Mean Corpuscular Hemoglobin 31.3 pg (26-34); Mean Platelet Volume 9.6 fl (7.4-10.4); Monocytes Absolute Auto 0.7 K/mm3 (0.1-0.6); Monocytes Percent Auto 5.9 % (2.6-8.5); Neutrophils Absolute Auto 10.7 K/mm3 (1.3-6.7); Neutrophils Percent Auto 88.5 % (45.5-73.1); Platelet Count Result 272 k/mm3 (150-375); Red Blood Count 3.19 M/mm3 (4.2-5.4); Red Cell Distribution Width 13.3 % (11.5-14.5); White Blood Count 12.1 K/mm3 (4.5-10.0)
[2023-08-02 05:23] LABS: Alanine Aminotransferase 24 U/L (6-35); Albumin Level 3.3 g/dL (3.5-5.1); Alkaline Phosphatase 39 U/L (38-126); Anion Gap 5 mmol/L (8-16); Aspartate Amino Transferase 27 U/L (14-36); Bilirubin,Total 0.2 mg/dL (0.2-1.3); Blood Urea Nitrogen 23 mg/dL (7-17); Calcium 8.9 mg/dL (8.4-10.2); Carbon Dioxide 27 mmol/L (22-30); Chloride 103 mmol/L (98-107); Estimated CRCL calculation 46 ml/min; Estimated Glomerular Filt Rate > 60; Glucose 141 mg/dL (65-110); Potassium 4.1 mmol/L (3.4-5.0); Sodium 135 mmol/L (137-145)
[2023-08-02] MEDS: FLUTICASONE/SALMETEROL 115-21 MCG INHALER 1 PUFF 2 PUFF INHALATION ×2 (07:35→20:42)
[2023-08-02] MEDS: amLODIPine BESYLATE 5 MG TABLET PO (09:27)
[2023-08-02] MEDS: HYDROcodone/acetaminophen (*CRX) 5-325 MG TABLET 1 TAB PO ×4 (09:27→20:30)
[2023-08-02] MEDS: guaiFENesin 12 HR 600 MG TABCR PO ×2 (09:27→20:30)
[2023-08-02] MEDS: methylPREDNISolone SOD SUCC 125 MG VIAL 40 MG IV PUSH (09:27)
--- NOTE | 2023-08-02 09:30 | PCPTNOTE ---
Attempted PT evaluation, pt's BP too high at this time per RN. Will follow.
[2023-08-02] MEDS: METOPROLOL TARTRATE 12.5 MG TABLET PO ×2 (10:12→20:31)
--- NOTE | 2023-08-02 10:57 | P.CDI_ITS ---
CDI Query Clarification Request Documentation in the medical record indicates that this patient has a: BMI =17.4 Based on your medical judgement , can you further clarify in the progress notes the diagnosis associated with these findings, if known, such as: * Underweight * Cachexia * Emaciation * Malnutrition * Undernutrition * Anorexia * Other condition ( Please specify) * None of the above/Not applicable <Ruth Ryan RN - Last Filed: 08/02/23 11:03> Clarified Diagnosis Clarified Diagnosis: Cachexia;Undernutrition <Eliecer Castillo MD - Last Filed: 08/02/23 13:08>
[2023-08-02] MEDS: hydrALAZINE HCL 20 MG/ML VIAL IV PUSH (11:39)
--- NOTE | 2023-08-02 13:40 | PCOTNOTE ---
Attempted OT evaluation, pt's BP too high at this time per RN. Will follow.
--- NOTE | 2023-08-02 13:45 | PCPTNOTE ---
Attempted PT evaluation, pt's BP remains too high per RN. Will follow
--- NOTE | 2023-08-02 14:32 | PM.IMPN ---
Progress Note: A&P Assessment and Plan (1) COPD with acute exacerbation: Code(s): J44.1 - Chronic obstructive pulmonary disease with (acute) exacerbation Status: Acute Assessment and Plan: -currently requiring BiPAP, continue -CXR: No acute cardiopulmonary process. Per my review of imaging, possible blebs bilaterally at bases. -continue nebs: ipratropium/levalbuterol Q4 p.r.n., post albuterol administration patient became increasingly tachycardic with heart rate sustaining in the 120-130s -continue steroids: initial dose of 125 mg methylprednisolone IVP, continue as 60 mg IVP Q6H x 3d. -1st dose of azithromycin 500 mg IVPB given in ED, continue Q24H -reassessment at 2100: minimal air movement. will need to continue BiPAP and nebs. 07/31/23: Will wean oxygen 08/01/: Steroids, oxygen, Ceftriaxone, Azithromycin, PEP, 08/02: DuoNebs, continue Antibiotics; PEP Rx (2) RSV bronchitis: Code(s): J20.5 - Acute bronchitis due to respiratory syncytial virus Status: Acute Assessment and Plan: -tested positive for RSV on 07/30/2023 -symptom onset on: -continue supportive measures Tylenol p.r.n. Tessalon Perles p.r.n. IV fluids - 100 mL/hr of NS x2L Mucinex (3) Anxiety: Code(s): F41.9 - Anxiety disorder, unspecified Status: Acute Assessment and Plan: Stable; on Anxiolytics (4) HTN (hypertension): Code(s): I10 - Essential (primary) hypertension Status: Acute Assessment and Plan: stable; on Amlodipine, Hydralazine Plan Diet: NPO until off BiPAP GI Prophylaxis: Not indicated DVT Prophylaxis: SCDs, Lovenox Lines: pIV Code Status: DNR Time Spent With Patient Time with patient: 25 - 35 minutes Subjective Date/time seen: 08/02/23 14:32 Interval history: Seen and examined; anxious and cooperative Review of Systems Review of Systems: All systems reviewed & are unremarkable except as noted in HPI and below Constitutional: Constitutional: Reports no additional constitutional complaints Eyes: Eyes: Reports no additional eye complaints ENT: Reports system reviewed and no additional complaints, except as documented Cardiovascular: Cardiovascular: Reports no additional cardiovascular complaints and Reports dyspnea Respiratory: Respiratory: Reports dyspnea Gastrointestinal: Gastrointestinal: Reports no additional gastrointestinal complaints Musculoskeletal: Musculoskeletal: Reports no additional musculoskeletal complaints Integumentary/Breasts: Skin/Breast: Reports dry skin Neurologic: Reports confusion Psychiatric: Psychiatric: Reports no additional psychiatric complaints and Reports confusion Exam Const: General: comfortable, in distress and confusion Orientation/consciousness: confusion Other: ill appearing, frail, , female. HENMT: Face/Nose/Sinus: Normal nares present Mouth: Yes dry mucous membranes Other: dry secondary to BIPAP Eyes: General: appearance normal, both eyes and all related structures Sclera: sclerae normal Pupils: Equal, round and reactive pupils present EOM: EOMs intact bilaterally Other: 3-4 mm bilaterally. Neck: Neck: supple Resp: Auscultation: wheezes and diminished lung sounds Other: +tachypnea, diaphragmatic breathing. L diminished throughout with minimal air movement. R side has faint expiratory wheeze with moderate airmovement. no crackles, however limited due to min-mod air movement throughout. Cardio: Rate: tachycardic Rhythm: regular rhythm Other: S1-S2 present without murmur, rub, ectopy GI: Other: non-tender, non-firm, and non-distended Skin: General skin exam: normal color and no rashes or lesions noted Wounds: no wounds Neuro: General: confusion Cranial nerves: Yes Equal, round and reactive pupils present Speech: normal speech Motor exam (neuro): 5/5 motor strength present throughout Sensory Exam: normal sensation Other: A
[2023-08-02] MEDS: lisinopriL 10 MG TABLET PO (17:36)
[2023-08-02] MEDS: hydroCHLOROthiazide 25 MG TABLET PO (17:36)
[2023-08-02] MEDS: AZITHROMYCIN 500 MG/NS 250 ML 500 MG/250 ML BAG 250 MG IVPB (17:36)
[2023-08-02] MEDS: traZODone HCL 50 MG TABLET PO (20:30)
[2023-08-02] MEDS: methylPREDNISolone SOD SUCC 40 MG VIAL 20 MG IV PUSH (20:31)
[2023-08-03] VITALS (29 sets, daily range): BP systolic 139–176; BP diastolic 93–123; PULSE 84–110; RESP 18–28; TEMP 36.3–36.9; O2SAT 93–98
[2023-08-03] MEDS: IPRATROPIUM BR 0.02% INH SOLN 0.5 MG/2.5 ML VIAL INHALATION ×4 (00:55→11:00)
[2023-08-03] MEDS: SODIUM CHLORIDE 0.9% IV 1,000 ML 50 ML IV CONT (05:05)
[2023-08-03 05:14] LABS: Basophils Percent Auto 0.1 % (0.2-1.2); Hematocrit 34.2 % (37.0-47.0); Hemoglobin 11.5 g/dL (12.0-15.0); Immature Granulocyte Absolute 0.07 K/mm3 (0.00-0.031); Immature Granulocyte Percent A 0.7 % (0-0.5); Lymphocytes Percent Auto 11.7 % (18.3-44.2); Mean Corpuscular HGB Conc 33.6 g/dl (32-36); Mean Corpuscular Hemoglobin 30.8 pg (26-34); Mean Corpuscular Volume 91.7 fl (80-100); Mean Platelet Volume 9.2 fl (7.4-10.4); Monocytes Absolute Auto 0.9 K/mm3 (0.1-0.6); Monocytes Percent Auto 9.3 % (2.6-8.5); Neutrophils Absolute Auto 7.4 K/mm3 (1.3-6.7); Neutrophils Percent Auto 78.2 % (45.5-73.1); Platelet Count Result 305 k/mm3 (150-375); Red Blood Count 3.73 M/mm3 (4.2-5.4); Red Cell Distribution Width 13.2 % (11.5-14.5); White Blood Count 9.4 K/mm3 (4.5-10.0)
[2023-08-03 05:28] LABS: Alanine Aminotransferase 22 U/L (6-35); Albumin Level 3.5 g/dL (3.5-5.1); Alkaline Phosphatase 44 U/L (38-126); Anion Gap 4 mmol/L (8-16); Aspartate Amino Transferase 26 U/L (14-36); Bilirubin,Total 0.4 mg/dL (0.2-1.3); Blood Urea Nitrogen 17 mg/dL (7-17); Calcium 9.1 mg/dL (8.4-10.2); Carbon Dioxide 32 mmol/L (22-30); Chloride 95 mmol/L (98-107); Estimated CRCL calculation 46 ml/min; Estimated Glomerular Filt Rate > 60; Glucose 97 mg/dL (65-110); Potassium 3.9 mmol/L (3.4-5.0); Sodium 131 mmol/L (137-145)
[2023-08-03] MEDS: FLUTICASONE/SALMETEROL 115-21 MCG INHALER 1 PUFF 2 PUFF INHALATION ×2 (07:20→20:00)
[2023-08-03] MEDS: METOPROLOL TARTRATE 12.5 MG TABLET PO ×2 (09:17→21:28)
[2023-08-03] MEDS: lisinopriL 10 MG TABLET PO (09:17)
[2023-08-03] MEDS: ACETAMINOPHEN 325 MG TABLET 650 MG PO (09:18)
[2023-08-03] MEDS: amLODIPine BESYLATE 5 MG TABLET PO (09:18)
[2023-08-03] MEDS: guaiFENesin 12 HR 600 MG TABCR PO ×2 (09:18→21:29)
[2023-08-03] MEDS: HYDROcodone/acetaminophen (*CRX) 5-325 MG TABLET 1 TAB PO ×4 (09:18→21:29)
[2023-08-03] MEDS: hydroCHLOROthiazide 25 MG TABLET PO (09:18)
[2023-08-03] MEDS: methylPREDNISolone SOD SUCC 40 MG VIAL 20 MG IV PUSH ×2 (09:19→21:29)
--- NOTE | 2023-08-03 11:47 | PCNFU ---
Nutrition Follow-Up Complete: Inadequate energy intake related to NPO status as evidenced by current diet order Goal:Diet order PO intake greater than 50% of meals and supplements Pt is on a diet, intake is currently poor Pt current nutrition is Heart healthy, Ensure compact BID. Nutrition recommendation: Increase Ensure compact to TID with meals Last recorded weight is 44.4 kg. Bowel Motility: +BM 08/02 Labs Reviewed: Hgb:11.5, HCT:34.2, NA:131 Meds Noted: solumedrol, HCTZ Skin: no skin issues noted Additional Notes: Pt now on a heart healthy diet, intake was good but has reduced to 0-20% at this time. Ensure compact BID in place, pt reports she is drinking it. Will increase to TID for additional supplementation. Monitor diet order, intake, wt, labs. Follow up in 5 days.
[2023-08-03] MEDS: AMOXICILLIN/CLAVULANATE K 875-125 MG TAB 1 TABLET PO ×2 (12:36→21:29)
--- NOTE | 2023-08-03 15:22 | PM.IMPN ---
Progress Note: A&P Assessment and Plan (1) COPD with acute exacerbation: Code(s): J44.1 - Chronic obstructive pulmonary disease with (acute) exacerbation Status: Acute Assessment and Plan: -currently requiring BiPAP, continue -CXR: No acute cardiopulmonary process. Per my review of imaging, possible blebs bilaterally at bases. -continue nebs: ipratropium/levalbuterol Q4 p.r.n., post albuterol administration patient became increasingly tachycardic with heart rate sustaining in the 120-130s -continue steroids: initial dose of 125 mg methylprednisolone IVP, continue as 60 mg IVP Q6H x 3d. -1st dose of azithromycin 500 mg IVPB given in ED, continue Q24H -reassessment at 2100: minimal air movement. will need to continue BiPAP and nebs. 07/31/23: Will wean oxygen 08/01/: Steroids, oxygen, Ceftriaxone, Azithromycin, PEP, 08/02: DuoNebs, continue Antibiotics; PEP Rx 08/03/23: Chest physiotherapy, continue to wean oxygen (2) RSV bronchitis: Code(s): J20.5 - Acute bronchitis due to respiratory syncytial virus Status: Acute Assessment and Plan: -tested positive for RSV on 07/30/2023 -symptom onset on: -continue supportive measures Tylenol p.r.n. Tessalon Perles p.r.n. IV fluids - 100 mL/hr of NS x2L Mucinex (3) Anxiety: Code(s): F41.9 - Anxiety disorder, unspecified Status: Acute Assessment and Plan: Stable; on Anxiolytics (4) HTN (hypertension): Code(s): I10 - Essential (primary) hypertension Status: Acute Assessment and Plan: stable; on Amlodipine, Hydralazine Plan Diet: NPO until off BiPAP GI Prophylaxis: Not indicated DVT Prophylaxis: SCDs, Lovenox Lines: pIV Code Status: DNR Time Spent With Patient Time with patient: 25 - 35 minutes Subjective Date/time seen: 08/03/23 15:22 Interval history: Seen and examined; anxious and cooperative Review of Systems Review of Systems: All systems reviewed & are unremarkable except as noted in HPI and below Constitutional: Constitutional: Reports no additional constitutional complaints Eyes: Eyes: Reports no additional eye complaints ENT: Reports system reviewed and no additional complaints, except as documented Cardiovascular: Cardiovascular: Reports no additional cardiovascular complaints and Reports dyspnea Respiratory: Respiratory: Reports dyspnea Gastrointestinal: Gastrointestinal: Reports no additional gastrointestinal complaints Musculoskeletal: Musculoskeletal: Reports no additional musculoskeletal complaints Integumentary/Breasts: Skin/Breast: Reports dry skin Neurologic: Reports confusion Psychiatric: Psychiatric: Reports no additional psychiatric complaints and Reports confusion Exam Const: General: comfortable, in distress and confusion Orientation/consciousness: confusion Other: ill appearing, frail, , female. HENMT: Face/Nose/Sinus: Normal nares present Mouth: Yes dry mucous membranes Other: dry secondary to BIPAP Eyes: General: appearance normal, both eyes and all related structures Sclera: sclerae normal Pupils: Equal, round and reactive pupils present EOM: EOMs intact bilaterally Other: 3-4 mm bilaterally. Neck: Neck: supple Resp: Auscultation: rhonchi, wheezes and diminished lung sounds Other: +tachypnea, diaphragmatic breathing. L diminished throughout with minimal air movement. R side has faint expiratory wheeze with moderate airmovement. no crackles, however limited due to min-mod air movement throughout. Cardio: Rate: tachycardic Rhythm: regular rhythm Other: S1-S2 present without murmur, rub, ectopy GI: Other: non-tender, non-firm, and non-distended Skin: General skin exam: normal color and no rashes or lesions noted Wounds: no wounds Neuro: General: confusion Cranial nerves: Yes Equal, round and reactive pupils present Speech: normal speech Motor exam (neuro): 5/5 motor strength
[2023-08-03] MEDS: IPRATROPIUM 0.5 MG/ALBUTEROL SULFATE 2.5 MG AMPUL.NEB 3 ML INHALATION ×3 (15:53→23:25)
[2023-08-03] MEDS: guaiFENesin/DEXTROMETHORPHAN 10 ML UDC PO (18:58)
[2023-08-03] MEDS: traZODone HCL 50 MG TABLET PO (21:29)
[2023-08-04] VITALS (18 sets, daily range): BP systolic 130–155; BP diastolic 82–111; PULSE 82–111; RESP 2–22; TEMP 36.6–36.9; O2SAT 93–97
[2023-08-04] MEDS: IPRATROPIUM 0.5 MG/ALBUTEROL SULFATE 2.5 MG AMPUL.NEB 3 ML INHALATION ×3 (04:22→11:00)
[2023-08-04 04:59] LABS: Basophils Percent Auto 0.1 % (0.2-1.2); Hematocrit 35.7 % (37.0-47.0); Hemoglobin 12.1 g/dL (12.0-15.0); Immature Granulocyte Absolute 0.06 K/mm3 (0.00-0.031); Immature Granulocyte Percent A 0.9 % (0-0.5); Lymphocytes Absolute Auto 0.72 K/mm3 (0.9-3.2); Lymphocytes Percent Auto 10.6 % (18.3-44.2); Mean Corpuscular HGB Conc 33.9 g/dl (32-36); Mean Corpuscular Hemoglobin 30.6 pg (26-34); Mean Corpuscular Volume 90.4 fl (80-100); Mean Platelet Volume 9.4 fl (7.4-10.4); Monocytes Absolute Auto 0.5 K/mm3 (0.1-0.6); Monocytes Percent Auto 6.8 % (2.6-8.5); Neutrophils Absolute Auto 5.5 K/mm3 (1.3-6.7); Neutrophils Percent Auto 81.6 % (45.5-73.1); Platelet Count Result 340 k/mm3 (150-375); Red Blood Count 3.95 M/mm3 (4.2-5.4); Red Cell Distribution Width 12.4 % (11.5-14.5); White Blood Count 6.8 K/mm3 (4.5-10.0)
[2023-08-04 05:20] LABS: Alanine Aminotransferase 22 U/L (6-35); Albumin Level 3.6 g/dL (3.5-5.1); Alkaline Phosphatase 44 U/L (38-126); Anion Gap 6 mmol/L (8-16); Aspartate Amino Transferase 24 U/L (14-36); Bilirubin,Total 0.5 mg/dL (0.2-1.3); Blood Urea Nitrogen 22 mg/dL (7-17); Calcium 9.3 mg/dL (8.4-10.2); Carbon Dioxide 32 mmol/L (22-30); Chloride 94 mmol/L (98-107); Estimated CRCL calculation 46 ml/min; Estimated Glomerular Filt Rate > 60; Glucose 131 mg/dL (65-110); Potassium 4.3 mmol/L (3.4-5.0); Sodium 132 mmol/L (137-145)
[2023-08-04] MEDS: SODIUM CHLORIDE 0.9% IV 1,000 ML 50 ML IV CONT (05:45)
[2023-08-04] MEDS: FLUTICASONE/SALMETEROL 115-21 MCG INHALER 1 PUFF 2 PUFF INHALATION (06:59)
[2023-08-04] MEDS: guaiFENesin 12 HR 600 MG TABCR PO (07:49)
[2023-08-04] MEDS: AMOXICILLIN/CLAVULANATE K 875-125 MG TAB 1 TABLET PO (07:50)
[2023-08-04] MEDS: amLODIPine BESYLATE 5 MG TABLET PO (07:50)
[2023-08-04] MEDS: METOPROLOL TARTRATE 12.5 MG TABLET PO (07:51)
[2023-08-04] MEDS: lisinopriL 10 MG TABLET PO (07:51)
[2023-08-04] MEDS: methylPREDNISolone SOD SUCC 40 MG VIAL 20 MG IV PUSH (07:52)
[2023-08-04] MEDS: hydroCHLOROthiazide 25 MG TABLET PO (07:52)
[2023-08-04] MEDS: HYDROcodone/acetaminophen (*CRX) 5-325 MG TABLET 1 TAB PO ×2 (07:52→12:37)
--- NOTE | 2023-08-04 15:03 | PM.DS ---
DS: Admitting Diagnosis Discharge Date 08/04/23 Admitting Diagnosis 1. Dyspnea 2. Hypoxic respiratory failure 3. COPD exacerbation 4. RSV infection 5. Anxiety DS: Discharge Diagnosis Discharge Diagnosis (1) COPD with acute exacerbation: Code(s): J44.1 - Chronic obstructive pulmonary disease with (acute) exacerbation Status: Acute Assessment and Plan: -currently requiring BiPAP, continue -CXR: No acute cardiopulmonary process. Per my review of imaging, possible blebs bilaterally at bases. -continue nebs: ipratropium/levalbuterol Q4 p.r.n., post albuterol administration patient became increasingly tachycardic with heart rate sustaining in the 120-130s -continue steroids: initial dose of 125 mg methylprednisolone IVP, continue as 60 mg IVP Q6H x 3d. -1st dose of azithromycin 500 mg IVPB given in ED, continue Q24H -reassessment at 2100: minimal air movement. will need to continue BiPAP and nebs. 07/31/23: Will wean oxygen 08/01/: Steroids, oxygen, Ceftriaxone, Azithromycin, PEP, 08/02: DuoNebs, continue Antibiotics; PEP Rx 08/03/23: Chest physiotherapy, continue to wean oxygen 08/04/23: Will DC on Steroids, Augmentin (2) RSV bronchitis: Code(s): J20.5 - Acute bronchitis due to respiratory syncytial virus Status: Acute Assessment and Plan: -tested positive for RSV on 07/30/2023 -symptom onset on: -continue supportive measures Tylenol p.r.n. Tessalon Perles p.r.n. IV fluids - 100 mL/hr of NS x2L Mucinex 08/04/23: Managed supportively with above regimen (3) Anxiety: Code(s): F41.9 - Anxiety disorder, unspecified Status: Acute Assessment and Plan: Stable; on Anxiolytics Reassurance (4) HTN (hypertension): Code(s): I10 - Essential (primary) hypertension Status: Acute Assessment and Plan: stable; on Amlodipine, Hydralazine On Lisionpril, Amlodipine Plan Acute and principal conditions Acute hypoxic respiratory failure RSV infection COPD exacerbation Chronic and stable conditions Nicotine dependence Hypertension Diet: NPO until off BiPAP GI Prophylaxis: Not indicated DVT Prophylaxis: SCDs, Lovenox Lines: pIV Code Status: DNR DS: Summary Hospital Course Reason for hospitalization: Shortness of breath Acute hypoxic respiratory failure. Hospital Course: Chief Complaint: SOB Narrative: 58 y/o F presents here with SOB with PMH of COPD, former smoker, HTN, chronic back pain, insomnia, and anxiety. Patient presented here via EMS from home with shortness of breath and fever.? Patient states her symptoms started on Monday, 07/28. Associated congestion, productive cough, generalized weakness, and body aches. No chills. Arrived to ED in distress despite DuoNeb treatment while in route.? Per ED provider, patient had diminished lung sounds throughout and tight, was tripoding, unable to speak full sentences, and had pursed lip breathing/retractions.? Patient has been utilizing her home albuterol without resolution of symptoms for the past few days.? Last COPD exacerbation was on 05/13/2023, seen here and given nebulizers.? Was discharged with doxycycline and prednisone. Has history of smoking - .? Vital signs at arrival:? Afebrile, HR 117, RR 33, 100% on room air, BP 151/112. ED workup revealed mild leukocytosis with WBC of 10.5, VBG unremarkable excluding elevated pO2 of 204.3, sodium 134, creatinine 0.8, mild elevation in LFTs, proBNP 2110, and patient is RSV+.? CXR did not demonstrate any acute cardiopulmonary processes.? EKG showed sinus tachycardia, atrial and ventricular premature complexes, left ventricular hypertrophy, abnormal EKG. She was treated with steroids, bronchodilators, oxygen, antibiotics, PEP therapy. she refused to test for oxygen; she stated she does not need it. Time spent discussing smoking cessation with patient: 3 to 10 minutes Status at Discharge Overall status at discharge: patient is progressing back to baseline
== END 2023-08-04 17:23 | disposition home or self-care (01) | DRG 202 ==
LOC: ANHED 18:15 → ANHIMU 20:19
PROVIDERS: Admitting Provider Hospitalist; Emergency Provider Emergency Medicine; Visit Provider Internal Medicine
DX: J20.5 Acute bronchitis due to respiratory syncytial virus (principal); J96.01 Acute respiratory failure with hypoxia; E46 Unspecified protein-calorie malnutrition; J44.1 Chronic obstructive pulmonary disease with (acute) exacerbation; Z68.1 Body mass index [BMI] 19.9 or less, adult; E88.A Wasting disease (syndrome) due to underlying condition; I10 Essential (primary) hypertension; F41.9 Anxiety disorder, unspecified; Z66 Do not resuscitate; Z87.891 Personal history of nicotine dependence
CPT/HCPCS: 36415; 36600; 71045; 80053; 82375; 82803; 82805; 83050; 83735; 83880; 84132; 85025; 87040; 87637; 93005; 94002; 94003; 94640; 94667; 94668; 96365; 96375; 97161; 97165; 99291; A9270; J0360; J0456; J0696; J1650; J2060; J2920; J2930; J7030

== ENCOUNTER 2025-04-11 12:05 | Emergency (ER) | payer OTHER, SELFPAY ==
[2025-04-11 12:15] VITALS: BP 164/108; PULSE 92; RESP 16; TEMP 36.8; O2SAT 96
--- NOTE | 2025-04-11 12:27 | ED.URI ---
HPI - URI/Sore Throat General Chief Complaint: Upper Respiratory Infection Stated Complaint: Cough/Sinus Time Seen by Provider: 04/11/25 12:27 Source: patient, RN notes reviewed and old records reviewed Mode of arrival: ambulatory Limitations: no limitations History of Present Illness HPI Narrative: 60-year-old female presents to the [facility] with 1 week history of increasing cough, productive, clear sinus drainage. Generalized fatigue or weakness. Has a significant respiratory history Related Data Home Medications ?Medication ?Instructions ?Recorded ?Confirmed ?Last Taken ?Type albuterol sulfate 90 mcg/actuation 2 puff inhalation BID 09/05/21 07/30/23 Unknown History aerosol inhaler amlodipine 10 mg tablet 5 mg PO QAM 09/05/21 07/30/23 Unknown History budesonide-formoterol HFA 160 2 puff inhalation BID 09/05/21 07/30/23 Unknown History mcg-4.5 mcg/actuation aerosol inhaler (Symbicort) trazodone 50 mg tablet 50 mg PO HS 09/05/21 07/30/23 07/29/23 History hydrocodone 5 mg-acetaminophen 325 1 tablet PO QID 05/13/23 07/30/23 07/29/23 History mg tablet budesonide 160 mcg-glycopyr 9 inh inhalation 04/11/25 Unknown History mcg-formot 4.8 mcg/actuation HFA inhaler (Breztri Aerosphere) buspirone 15 mg tablet mg 04/11/25 Unknown History citalopram 40 mg tablet mg 04/11/25 Unknown History hydroxyzine HCl 50 mg tablet mg 04/11/25 Unknown History ipratropium 0.5 mg-albuterol 3 mg ml inhalation 04/11/25 Unknown History (2.5 mg base)/3 mL nebulization soln loratadine 10 mg tablet mg 04/11/25 Unknown History montelukast 10 mg tablet mg 04/11/25 Unknown History Allergies Allergy/AdvReac Type Severity Reaction Status Date / Time No Known Allergies Allergy Verified 05/13/23 17:13 Review of Systems Review of Systems: All systems reviewed & are unremarkable except as noted in HPI and below Constitutional: Constitutional: Reports no additional constitutional complaints ENT: Reports as per HPI Cardiovascular: Cardiovascular: Reports no additional cardiovascular complaints, Denies chest pain and Denies dyspnea Respiratory: Respiratory: Reports as per HPI, Denies chest congestion, Reports cough and Denies dyspnea Musculoskeletal: Musculoskeletal: Reports no additional musculoskeletal complaints Integumentary/Breasts: Skin/Breast: Reports system reviewed and no additional complaints, except as docu [facility] Past Medical History Medical History (Updated 04/11/25 @ 12:38 by Ni Kathleen APRN) Anxiety Insomnia HTN (hypertension) Chronic back pain Former smoker COPD (chronic obstructive pulmonary disease) Surgical History Surgical History History of cataract surgery Family History Family History Sibling Hypertension Social History Social History Smoking packs per day: 0.5 Smoking cigarettes per day: 10.0 Years smoked: 35 Smoking pack-years: 17.50 Smoking status: Former smoker Tobacco type: cigarettes Smoking end date: 07/23/23 Alcohol intake: never Substance use: current Substance use type: marijuana Last use: 07/28/23 Do You Feel Safe in your Home?: Yes Lack of Transportation: No Lack of Food: Never True Current Housing: I Have Housing Concerned About Future Housing: No Difficulty Paying Gas/Electric Bills: No Difficulty Paying for Meds: No Currently Unemployed: No Education: High School Diploma/GED Difficulty w/ Childcare or Family Care: No Spiritual care concerns: No Comments At the time of my signature, I reviewed and agree with the nursing past medical, surgical, social, and family history. There is no relevant family history pertinent to the patient complaint. Exam Const: General: cooperative, healthy appearing, comfortable, no acute distress, well developed, alert and well nourished Nutritional Appearance: well nourished Orientation/consciousness: patient oriented x3 Limitations: no limitations HENMT: Head: normal to inspection Ears: hearing grossly normal bilaterally, external ears normal, TM's normal bilaterally, EAC's normal, mastoids normal and no periauricular adenopathy Throat: posterior oropharynx normal, uvula midline and no uvular edema Eyes: General: appearance normal, both eyes and all related structures Alignment and Position: alignment normal Neck: Neck: normal visual inspection, full ROM, no lymphadenopathy and no meningeal signs Chest: Chest palpation & inspection: normal inspection of the chest Resp: Effort & Inspection: normal respiratory effort and able to speak in complete sentences Auscultation: clear to auscultation bilaterally, no crackles, no rales, no rhonchi and no wheezes Cardio: Rate: regular rate Skin: General skin exam: normal color and no rashes or lesions noted Neuro: General: patient oriented x3, gait normal, moves all extremities and no meningeal signs Cognition (Neuro): normal cognition Speech: normal speech Gait exam (Neuro): Normal gait present Extrem: General: normal to inspection, full ROM, capillary refill normal and normal gait Psych: Appearance: grossly normal and well kempt Mental Status: mental status grossly normal Speech and movement: Normal speech and movement present and Clear speech present Affect: normal affect Attitude: cooperative Course Course Level of Care: Express Care Visit Vital Signs Vital signs: Vital Signs Temperature 98.3 F 04/11/25 12:15 Pulse Rate 92 04/11/25 12:15 Respiratory Rate 16 04/11/25 12:15 Blood Pressure 164/108 H 04/11/25 12:15 Pulse Oximetry 96 04/11/25 12:15 Oxygen Delivery Room Air 04/11/25 12:15 Temperature 98.3 F 04/11/25 12:15 Pulse Rate 92 04/11/25 12:15 Respiratory Rate 16 04/11/25 12:15 Blood Pressure 164/108 H 04/11/25 12:15 Pulse Oximetry 96 04/11/25 12:15 Oxygen Delivery Room Air 04/11/25 12:15 Reviewed MDM - URI/Sore Throat MDM Narrative Medical decision making narrative: Patient sitting in exam room. Patient is nontoxic, vitals stable. Patient presents 1 week history of cough, sinus drainage. Has a history of COPD. Has not smoked in 8 or 9 months. Denies any fevers, chest pain, significant shortness of breath. Flu and COVID are negative. Due to patient's past medical history will prescribe an antibiotic, encourage the use of her inhalers. Discussed signs and symptoms to proceed to the emergency room which she verbalized understanding Discharge instructions reviewed with patient, as well as provided in writing per nursing staff. The instructions also include specific and strict return/GO TO THE ER as well as f/u information. All questions have been answered, and the patient deny any further questions with discharge and discharge plan. Some parts of this dictation were generated by voice recognition software and may contain typographical and/or grammatical inaccuracies. Differential Diagnosis Differential diagnosis: Likely upper respiratory infection, otitis media, sinusitis, viral infection, bronchitis, influenza and pharyngitis Lab Data Labs: Lab Results 04/11/25 Range/Units 12:21 POC SARS CoV-2 Ag Negative (Negative) Reviewed Critical Care Time Critical Care Time Critical Care Time: No Discharge Plan Discharge Clinical Impression: COPD with acute exacerbation, Thrush Sinusitis Qualifiers: Sinusitis location: unspecified location Chronicity: acute Recurrence: not specified as recurrent Qualified Code(s): J01.90 - Acute sinusitis, unspecified Patient Disposition: Home Condition: Stable Instructions: Antibiotic Form, Sinusitis (ED), Oral Candidiasis (ED), COPD (Chronic Obstructive Pulmonary Disease) (ED) Additional Instructions: Today your blood pressure was 164/108. Please follow-up with your primary care provider this week. Your COVID test was negative Continue using your inhalers as prescribed For new or worsening symptoms please go directly to the nearest emergency room Patient Language: Macedonian Prescriptions: New prednisone 20 mg tablet See Rx Instructions .Route .COMPLEX Qty: 9 0RF Rx Instructions: Take 40 mg daily for 3 days, 20 mg daily for 3 days doxycycline monohydrate 100 mg tablet 100 mg PO BID Qty: 14 0RF nystatin 100,000 unit/mL suspension 5 ml PO QID 7 Days Qty: 140 0RF Rx Instructions: swish and swallow No Action hydrocodone-acetaminophen 5-325 mg tablet 1 tablet PO QID ipratropium-albuterol 0.5 mg-3 mg(2.5 mg base)/3 mL solution for nebulization INHALATION citalopram 40 mg tablet hydroxyzine HCl 50 mg tablet montelukast 10 mg tablet loratadine 10 mg tablet buspirone 15 mg tablet Breztri Aerosphere 160-9-4.8 mcg/actuation HFA aerosol inhaler INHALATION trazodone 50 mg tablet 50 mg PO HS amlodipine 10 mg tablet 5 mg PO QAM Rx Instructions: patient does not take as prescribed. States she self doses based on BPs albuterol sulfate 90 mcg/actuation HFA aerosol inhaler 2 puff INHALATION BID budesonide-formoterol [Symbicort] 160-4.5 mcg/actuation HFA aerosol inhaler 2 puff INHALATION BID Follow-up/Referrals: PHYSICIAN,COMMISSION CLERK [Primary Care Provider, Internal Medicine] Time of Disposition: 12:40
[2025-04-11 13:05] LABS: EDCOVIDSCREEN Negative (Negative)
== END 2025-04-11 12:48 | disposition home or self-care (01) ==
PROVIDERS: Emergency Provider Nurse Practitioner
DX: J44.1 Chronic obstructive pulmonary disease with (acute) exacerbation (principal); B37.9 Candidiasis, unspecified; J01.90 Acute sinusitis, unspecified; Z20.822 Contact with and (suspected) exposure to COVID-19; I10 Essential (primary) hypertension; F41.9 Anxiety disorder, unspecified; Z87.891 Personal history of nicotine dependence
CPT/HCPCS: 87426; 99213; G0463